=== PATIENT | female | born 1960 | race Caucasian/White ===

== ENCOUNTER → 2017-02-23 | Outpatient (CLI) | payer OTHER ==
[~2017-02-23] MED LIST: ASPIR 8181 M1 PO; CELEXA 20 MG TA20 M1 PO; EFFEXOR XR150 MG PO; FORTICAL1 SPRAY NASAL; GINKGO BILOBA120 MG PO; GLUCOPHAGE500 MG PO; JANUVIA100 MG PO; LETROZOLE2.5 MG PO; LISINOPRIL-HCT1 EAC2 PO; MILK THISTLE175 M2 PO; MILK THISTLE500 MG PO; MOBIC15 MG PO; PERCOCET 5-3251 EACH PO; PERCOCET 7.5-31 EACH PO; TRICOR145 MG PO; VITAMIN D10000 UNIT PO; VITAMIN D32000 UNI1 PO; ZOCOR40 MG PO; ZOLPIDEM TARTRA10 MG PO
== END ==
LOC: MRI 07:04
DX: M75.102 Unspecified rotator cuff tear or rupture of left shoulder, not specified as traumatic (principal); M25.412 Effusion, left shoulder

== ENCOUNTER 2017-03-23 05:30 | Day surgery (SDC) | payer OTHER ==
[~2017-03-23] VITALS: Ht 167.6 cm; Wt 88.9 kg
--- NOTE | ~2017-03-23 | O ---
[facility] [place] [address] OPERATIVE REPORT Name: SAUL CHAMORRO Room #: [facility] Tonja.#: [id number] Admission: 03/23/17 Attend Phys: Fernando Kang Discharge: 03/23/17 Date of : 60 Report #: [id number] THIS REPORT FOR: //name// CC: Fernando Monteiro DATE OF SERVICE: 03/23/2017 PREOPERATIVE DIAGNOSES: Left shoulder pain, rotator cuff tear, impingement syndrome, acromioclavicular joint arthrosis. POSTOPERATIVE DIAGNOSES: Left shoulder rotator cuff tear, large; impingement syndrome; subacromial bursitis; acromioclavicular joint arthrosis; frayed glenoid labrum; intra-articular synovitis. PROCEDURE PERFORMED: Left shoulder arthroscopy, rotator cuff repair, subacromial decompression, excision of distal clavicle, extensive debridement. SURGEON: Fernando Baron M.D. CLASSROOM TECHNOLOGY TECHNICIAN: Aruna Cruz PA-C. ANESTHESIA: General with preoperative interscalene block by Dr. Yusuf. FLUIDS: 600 mL crystalloid. ESTIMATED BLOOD LOSS: 10 mL. IMPLANTS UTILIZED: Arthrex 4.75 mm SwiveLock anchor x 3. DESCRIPTION OF PROCEDURE: After proper identification of the patient and operative site in preoperative holding area, the operative site was signed by myself. Prophylactic antibiotics given. The patient reported continued pain about the acromioclavicular joint and wished to proceed with an excision of the distal clavicle in addition to the above. She discussed the risks, benefits, alternatives and potential complications of anesthesia as well as an interscalene block with Dr. Yusuf elected to proceed with this. After satisfactory block, she was brought back to the operative suite. After induction of satisfactory general endotracheal anesthesia, her left shoulder was carefully examined. It was stable throughout a full arc of motion comparable to the preoperative assessment. She was carefully positioned in the right lateral decubitus position. Beanbag and axillary roll were utilized to support the torso. The left shoulder was sterilely prepped and draped in usual manner and placed in a 10 pounds balanced arthroscopic suspension. Posterior portal was established. Joint was inflated with an arthroscopic pump set at 40 mmHg. An anterior portal was then established to the rotator interval. Examination of [address] [address] OPERATIVE REPORT Name: ASHTYNSAUL Room #: [facility].#: [id number] Admission: 03/23/17 Attend Phys: Fernando Kang Discharge: 03/23/17 Date of : 60 Report #: [id number] the glenohumeral joint revealed a tear of the supraspinatus extending into the infraspinatus. This was full thickness from the articular side. Some delamination of the rotator cuff was noted and did appear to be thinned in appearance. Chondral surface of the humeral head was intact. There was some mild glenoid labral fraying of the anterior superior quadrant which was carefully debrided. The long head of the biceps tendon was secured and detached from the superior labrum. There was no evidence of groove pathology. The upper border of the subscapularis was intact and remainder of the subscapularis was as well. Some mild intraarticular synovitis was carefully debrided. At this point, the arthroscope was introduced in the subacromial space. Thickened subacromial bursa was encountered. This was resected with a motorized shaver. Fraying on the undersurface of the coracoacromial arch was noted. Prominence to the acromion was removed using motorized bur. Approximately, 5 mm of bone was resected off the more anterior/lateral edge of the acromion. After satisfactory decompression of the acromion, the AC joint was visualized. AC joint arthrosis was noted. Distal clavicle excision was performed with motorized bur where approximately 8-10 mm of bone was resected. Care was taken to preserve the superior capsular structures. A 10 mm grasper could easily be opened within the joint space. At this point, the rotator cuff tear was visualized. The patient had an approximate 2.5 cm tear involving the supraspinatus extending back into the infraspinatus. The overall rotator cuff quality was fair. It was thinned. Tear pattern was easily reducible to the tuberosity in more of a crescent shape pattern. Through a separate port off the lateral border of the acromion, 2 Arthrex 4.75 mm double-loaded SwiveLock anchors were inserted. Bone quality was just fair, it was relatively soft. [place] still had good purchase. The suture limbs were passed in horizontal mattress fashion, tied with locking sliding knots backed up with alternating half inches. The sutures had been placed through a separate lateral row anchor creating a double row construct. This nicely reapproximated the tendon. It was stable to probing. Subacromial space was thoroughly irrigated with normal saline. Portals were closed with simple nylon stitch. The patient will be immobilized in a sling and abduction pillow for 6 weeks postoperatively. A qualified first leveler was utilized throughout the entire procedure to aid in patient limb positioning, visualization with the arthroscope, instrument suture passage closure and sling application. The patient was stable in the operative suite with anticipated discharge to recovery room in stable condition. By: [id number] Fernando Baron MD /maurice
--- NOTE | ~2017-03-23 | EKG ---
[address] [address] ELECTROCARDIOGRAM REPORT Name: SAUL CHAMORRO [id number] Admission: 03/23/17 Attend Phys: Fernando Kang Discharge: 03/23/17 Date of : 60 Report #: [id number] THIS REPORT FOR: //name// [facility] Test Date: 2017-03-23 Test Time: 11:00:12 Pat Name: SAUL CHAMORRO Department: Room: 150 1 Gender: F Lone Lead Lineman: FRANCIA : 1960 Requested By: Fernando Baron Order Number: [id number] MD: Paramjit Tirado Measurements Intervals [place] Rate: 75 P: 24 W[place]: 143 QRS: 3 QRSD: 105 T: 24 QT: 427 QTc: 477 Interpretive Statements Sinus rhythm Baseline wander in lead(s) I,aVL,V4 Compared to ECG 06/11/2012 06:58:17 T-wave abnormality no longer present Electronically Signed On 03-24-2017 16:37:35 CDT by Paramjit Tirado [email or web address] <ELECTRONICALLY SIGNED> By: Paramjit Tirado MD, FACC 03/24/17 1637 1100 1100 Paramjit Tirado MD, [facility] /EPI
[~2017-03-23 05:30] MED LIST changes: +GLUCOSAMINE CH1 EAC2 PO; +KRILL OIL 1,001 EAC1 PO
[2017-03-23 11:00] VITALS: BP 120/74
[2017-03-23 11:09] LABS: CALCIUM 9.3 mg/dL (8.5-10.1); CREATININE 0.8 mg/dL (0.6-1.0); POTASSIUM 4.1 mmol/L (3.5-5.1)
[2017-03-23 14:55] VITALS: BP 120/74
== END 2017-03-23 16:03 | disposition home or self-care (01) ==
LOC: TBA 05:30 → OR 05:30
PROVIDERS: Orthopaedic Surgery Sports Medicine
DX: S46.012A Strain of muscle(s) and tendon(s) of the rotator cuff of left shoulder, initial encounter (principal); M65.812 Other synovitis and tenosynovitis, left shoulder; M75.42 Impingement syndrome of left shoulder; M75.52 Bursitis of left shoulder; M19.012 Primary osteoarthritis, left shoulder; S43.432A Superior glenoid labrum lesion of left shoulder, initial encounter; F32.9 Major depressive disorder, single episode, unspecified; F41.9 Anxiety disorder, unspecified; G47.33 Obstructive sleep apnea (adult) (pediatric); I10 Essential (primary) hypertension; J45.909 Unspecified asthma, uncomplicated; E11.9 Type 2 diabetes mellitus without complications; Z85.3 Personal history of malignant neoplasm of breast; Z87.891 Personal history of nicotine dependence; Z98.890 Other specified postprocedural states; X58.XXXA Exposure to other specified factors, initial encounter; Y92.89 Other specified places as the place of occurrence of the external cause; Y93.89 Activity, other specified; Y99.8 Other external cause status
CPT/HCPCS: 50010; 50101; 50172; 50386; 50417; 50597; 50935; 50950; 51038; 51445; 51847; 53610; 54170; 55430; 56525; 56527; 62110; 62900; 70005

== ENCOUNTER → 2017-11-09 | Outpatient (CLI) | payer OTHER | LOC: CAT 14:13 | DX: Z13.6 Encounter for screening for cardiovascular disorders (principal) ==

== ENCOUNTER → 2020-09-07 | Outpatient (CLI) | payer OTHER ==
[2020-09-07 12:59] LABS: ABSOLUTE NEUTROPHILS 2.8 thou/uL (1.4-8.2); EOSINOPHILS 0.1 % (0.0-3.0); HEMOGLOBIN 11.3 gm/dL (12.0-15.0); MCH 29.1 pg (26.0-34.0); MCHC 33.4 g/dL (28.0-37.0); MCV 87.1 fL (80.0-100.0); MONOCYTES 8.2 % (1.0-8.0); PLATELET COUNT 284 thou/uL (150-400); POLYS 61.7 % (36.0-66.0); RDW 12.9 % (10.5-14.5); WBC 4.5 thou/uL (4.0-11.0)
[2020-09-07 13:17] LABS: ALBUMIN 3.8 g/dL (3.4-5.0); ANION GAP 7 mmol/L (7-16); BUN 17 mg/dL (7-18); CALCIUM 9.1 mg/dL (8.5-10.1); CHLORIDE 105 mmol/L (98-107); CHOLESTEROL 186 mg/dL (<200); CO2 30 mmol/L (21-32); CREATININE 0.9 mg/dL (0.6-1.0); GLUCOSE 107 mg/dL (74-106); HDL CHOLESTEROL 31 mg/dL (>40); LDL CHOLESTEROL 131 mg/dL (<100); POTASSIUM 4.2 mmol/L (3.5-5.1); SGOT 28 U/L (15-37); SGPT 39 U/L (30-65); SODIUM 142 mmol/L (136-145); TOTAL BILIRUBIN 0.6 mg/dL (0.2-1.0); TOTAL PROTEIN 7.1 g/dL (6.4-8.2); TRIGLYCERIDE 121 mg/dL (<150); VLDL 24 mg/dL (<40)
[2020-09-08 06:07] LABS: GLYCOHEMOGLOBIN (HGB A1C) 5.8 % (4.8-5.6)
== END ==
LOC: LAB 11:41
PROVIDERS: ATTEND Family Medicine
DX: Z01.419 Encounter for gynecological examination (general) (routine) without abnormal findings (principal)

== ENCOUNTER → 2020-11-12 | Outpatient (CLI) | payer OTHER | LOC: LAB 09:11 | PROVIDERS: ATTEND Family Medicine | DX: U07.1 COVID-19 (principal) ==

== ENCOUNTER 2021-05-28 20:44 | Emergency (ER) | payer OTHER ==
[~2021-05-28] VITALS: Ht 170.2 cm; Wt 90.7 kg
[2021-05-28 21:00] VITALS: BP 163/82
== END 2021-05-29 00:36 | disposition home or self-care (01) ==
LOC: ER 20:44
DX: S52.572A Other intraarticular fracture of lower end of left radius, initial encounter for closed fracture (principal); S52.612A Displaced fracture of left ulna styloid process, initial encounter for closed fracture; J45.909 Unspecified asthma, uncomplicated; I10 Essential (primary) hypertension; E11.9 Type 2 diabetes mellitus without complications; F32.9 Major depressive disorder, single episode, unspecified; Z98.890 Other specified postprocedural states; Z79.84 Long term (current) use of oral hypoglycemic drugs; Z79.899 Other long term (current) drug therapy; Z88.0 Allergy status to penicillin; Z91.09 Other allergy status, other than to drugs and biological substances; W18.39XA Other fall on same level, initial encounter; Y93.89 Activity, other specified; Y92.89 Other specified places as the place of occurrence of the external cause; Y99.8 Other external cause status

== ENCOUNTER → 2021-06-03 | Outpatient (CLI) | payer OTHER ==
[~2021-06-03] MED LIST changes: +DAILY VALUE1 EAC1 PO; +MELOXICAM15 MG PO; +METFORMIN HCL500 M3 PO; +TRAMADOL 50 MG50 MG PO
== END ==
LOC: MRI 08:06
PROVIDERS: ATTEND Orthopaedic Surgery Sports Medicine
DX: M75.82 Other shoulder lesions, left shoulder (principal); M75.52 Bursitis of left shoulder; Z98.890 Other specified postprocedural states

== ENCOUNTER 2021-06-06 12:18 | Day surgery (SDC) | payer OTHER ==
[~2021-06-06] VITALS: Ht 170.2 cm; Wt 90.7 kg
[2021-06-06 13:08] LABS: CALCIUM 9.1 mg/dL (8.5-10.1); CREATININE 0.9 mg/dL (0.6-1.0); POTASSIUM 4.2 mmol/L (3.5-5.1)
[2021-06-06 15:04] VITALS: BP 143/93
[2021-06-06 17:23] VITALS: BP 143/93
--- NOTE | 2021-06-09 15:47 | O ---
[facility] [place] [address] OPERATIVE REPORT Name: SAUL CHAMORRO Room #: [facility]..#: [id number] Admission: 06/06/21 Attend Phys: Gabby Mo, Discharge: 06/06/21 Date of : 60 Report #: [id number] THIS REPORT FOR: cc: Lemuel Monteiro James A. DO Deardorff,Gabby Clemons MD ~ DATE OF SERVICE: 06/06/2021 PREOPERATIVE DIAGNOSIS: Left distal radius fracture with 2 intraarticular fragments/a volar Valdovinos's type fracture. POSTOPERATIVE DIAGNOSIS: Left distal radius fracture with 2 intraarticular fragments/a volar Valdovinos's type fracture. PROCEDURE PERFORMED: Open reduction internal fixation left distal radius fracture. SURGEON: Gabby Mo MD. ANESTHESIA: General mask anesthesia. ESTIMATED BLOOD LOSS: Minimal. TOURNIQUET TIME: 36 minutes. COMPLICATIONS: None. CONDITION: Stable. DISPOSITION: Recovery room. INDICATIONS: The patient is a 61-year-old female with the above-mentioned diagnosis. She elects for operative treatment. The risks, benefits, alternatives and complications were discussed including but not limited to infection, damage to vessels or nerves, incomplete relief or worsening of any symptoms, nonunion, hardware failure, hardware irritation, and stiffness. Informed consent was obtained. The correct extremity was identified and labeled by myself after verbal confirmation of the patient as well as visual confirmation and signed informed consent. DESCRIPTION OF PROCEDURE: The patient was brought back to the operating room and placed in supine position. She received preoperative antibiotics. The tourniquet was placed over padding and the patient's left lower extremity was sterilely prepped and draped in the usual fashion. Final timeout was taken to verify correct patient, operative procedure, operative site, all concurred. The arm was elevated, exsanguinated and the tourniquet inflated. A volar approach [address] [address] OPERATIVE REPORT Name: SAUL CHAMORRO Room #: [facility]..#: [id number] Admission: 06/06/21 Attend Phys: Gabby Mo, Discharge: 06/06/21 Date of : 60 Report #: [id number] was done at the distal radius over the FCR tendon. The dissection was carried down through subcutaneous tissue with tenotomy scissors. The FCR sheath was identified and incised. The subsheath was incised. The volar contents were retracted ulnarly and the radial portion of the pronator quadratus was incised, which was elevated off the bone. The fracture site was easily identified and cleaned of clot and debris. A standard and volar distal radius locking plates were placed on to the bone using fluoroscopic guidance, the standard was too large. The narrow was chosen. It was then affixed to the bone with a cortical screw in the gliding hole. This eventually was changed out to a shorter screw, but had excellent fixation and provided a buttress effect needed. Next, once it was positioned appropriately, the distal locking screws were drilled, measured, and the appropriate size screws were placed. Again, this plate had more of a buttress functions and ____ was utilized. It was very stable. Next, the proximal shaft screws were drilled, measured, and the appropriate size screws were placed. AP and lateral, left lateral tilt and live fluoroscopic and radial ulnar deviation views were all taken, which showed good position of the fracture, good position of the hardware and stable scapholunate interval. The DRUJ was assessed. It was stable. The wound was thoroughly irrigated. The pronator quadratus was reapproximated with 3-0 Vicryl suture. The subcutaneous tissue was closed with 3-0 Monocryl and then a 4-0 Monocryl and Steri-Strips. The wound was infiltrated with approximately 5 mL of 0.25% Marcaine. She was placed in a bulky dressing and a volar slab splint. All fingers were pink, brisk capillary refill at the conclusion of case, after deflation of tourniquet. All sponge and needle counts were correct. The patient was transferred to postoperative recovery room in stable condition. <ELECTRONICALLY SIGNED> By: Gabby Mo MD 06/09/21 1547 [id number] [id number] Gabby Mo MD /nt
== END 2021-06-06 18:55 | disposition home or self-care (01) ==
LOC: OR 12:18 → TBA 12:27 → OR 15:01
PROVIDERS: ATTEND Orthopaedic Surgery Hand Surgery
DX: S52.572A Other intraarticular fracture of lower end of left radius, initial encounter for closed fracture (principal); M25.532 Pain in left wrist; I10 Essential (primary) hypertension; E11.9 Type 2 diabetes mellitus without complications; D64.9 Anemia, unspecified; F32.9 Major depressive disorder, single episode, unspecified; F41.9 Anxiety disorder, unspecified; G47.30 Sleep apnea, unspecified; Z98.890 Other specified postprocedural states; Z79.899 Other long term (current) drug therapy; Z20.822 Contact with and (suspected) exposure to COVID-19; Z87.891 Personal history of nicotine dependence; Z85.3 Personal history of malignant neoplasm of breast; Z98.51 Tubal ligation status; Z88.0 Allergy status to penicillin; X58.XXXA Exposure to other specified factors, initial encounter; Y93.89 Activity, other specified; Y92.89 Other specified places as the place of occurrence of the external cause; Y99.8 Other external cause status
CPT/HCPCS: 50010; 50101; 50386; 56526; 56527; 57006; 57091; 57178; 58235; 58237; 58238; 58319; 62110; 62900; 64043; 65060; 70005

== ENCOUNTER → 2021-10-17 | Outpatient (CLI) | payer OTHER ==
[2021-10-17 10:21] LABS: ABSOLUTE NEUTROPHILS 3.7 thou/uL (1.4-8.2); BASOPHILS 0.1 % (0.0-2.0); EOSINOPHILS 0.2 % (0.0-3.0); HEMATOCRIT 35.2 % (37.0-47.0); HEMOGLOBIN 11.7 gm/dL (12.0-15.0); LYMPHOCYTES 25.2 % (24.0-44.0); MCH 28.8 pg (26.0-34.0); MCHC 33.2 g/dL (28.0-37.0); MCV 86.8 fL (80.0-100.0); MONOCYTES 7.7 % (1.0-8.0); PLATELET COUNT 307 thou/uL (150-400); POLYS 66.8 % (36.0-66.0); RBC 4.05 mil/uL (4.20-5.00); RDW 13.7 % (10.5-14.5); WBC 5.5 thou/uL (4.0-11.0)
[2021-10-17 10:40] LABS: ALBUMIN 3.6 g/dL (3.4-5.0); ANION GAP 8 mmol/L (7-16); BUN 21 mg/dL (7-18); CALCIUM 8.9 mg/dL (8.5-10.1); CHLORIDE 103 mmol/L (98-107); CHOLESTEROL 182 mg/dL (<200); CO2 29 mmol/L (21-32); CREATININE 0.8 mg/dL (0.6-1.0); GLUCOSE 246 mg/dL (74-106); HDL CHOLESTEROL 31 mg/dL (>40); LDL CHOLESTEROL 121 mg/dL (<100); POTASSIUM 3.6 mmol/L (3.5-5.1); SGOT 21 U/L (15-37); SGPT 38 U/L (30-65); SODIUM 140 mmol/L (136-145); TC:HDL 5.9 Ratio (Not establshd); TOTAL BILIRUBIN 0.2 mg/dL (0.2-1.0); TOTAL PROTEIN 7.2 g/dL (6.4-8.2); TRIGLYCERIDE 154 mg/dL (<150); URIC ACID* 4.8 mg/dL (2.6-6.0); VLDL 31 mg/dL (<40)
[2021-10-18 02:06] LABS: GLYCOHEMOGLOBIN (HGB A1C) 7.2 % (4.8-5.6)
[2021-10-18 13:08] LABS: ANA INTERPRETATION Negative (Negative)
== END ==
LOC: LAB 08:58 → RAD 08:58
PROVIDERS: ATTEND Family Medicine
DX: M22.2X2 Patellofemoral disorders, left knee (principal); M22.2X1 Patellofemoral disorders, right knee; E78.5 Hyperlipidemia, unspecified; E11.9 Type 2 diabetes mellitus without complications; M25.562 Pain in left knee; M25.561 Pain in right knee; M25.50 Pain in unspecified joint

== ENCOUNTER → 2021-10-19 | Outpatient (CLI) | payer OTHER | LOC: NUC 08:20 | PROVIDERS: ATTEND Family Medicine | DX: M81.0 Age-related osteoporosis without current pathological fracture (principal) ==